=== PATIENT | male | born 1945 | race Caucasian/White ===

== ENCOUNTER → 2016-09-07 | Outpatient (REF) | payer MEDICARE, OTHER ==
[~2016-09-07] MED LIST: ALLO100T PO; AMBI10TA PO; AMOX500T2 PO; CALC1CAP31 PO; CITA20TA4 PO; COLC1CAP PO; CYCL10TA PO; DILA2TAB2 PO; FURO20TA2 PO; FURO40TA2 PO; GABA300C3 PO; INSUH10VL SC; INSULADS SC; METO-207 PO; MULT1TAB9 PO; OMEG100011 PO; PRED20TAB PO; RENATAB5 PO; ULTR100T6 PO; VITA-112 PO; VITATAB11 PO; VITATAB21 PO; [UNRECOGNIZED DRUG - CODE] XX
[2016-09-07 13:31] LABS: PERCENT SATURATION 16.1 % (19.7-37.4)
== END ==
LOC: M LAB REF 12:51
PROVIDERS: ATTEND Internal Medicine Nephrology
DX: N18.9 Chronic kidney disease, unspecified (principal); D63.1 Anemia in chronic kidney disease

== ENCOUNTER 2016-09-16 07:09 | Outpatient (CLI) | payer MEDICARE, OTHER ==
[2016-09-16] MEDS ORDERED: IRON SUCROSE 25 MG in NS 50 ML IV ONE (07:30)
[2016-09-16] MEDS ORDERED: IRON SUCROSE 475 MG in NS 250 ML IV ONE (08:30)
== END 2016-09-16 12:20 | disposition home or self-care (01) ==
LOC: M INFU 07:09
PROVIDERS: ATTEND Internal Medicine Nephrology
DX: D50.9 Iron deficiency anemia, unspecified (principal)
CPT/HCPCS: 96365; 96366; J1756

== ENCOUNTER → 2016-10-08 | Outpatient (REF) | payer MEDICARE, OTHER | LOC: M LAB REF 15:04 | PROVIDERS: ATTEND Podiatrist | DX: L03.032 Cellulitis of left toe (principal) ==

== ENCOUNTER → 2016-11-01 | Outpatient (CLI) | payer MEDICARE, OTHER ==
--- NOTE | 2016-11-01 11:28 | REP ---
Clinical: History of head and neck carcinoma. Comparison: 03/13/2015. Findings: Right perihilar and basilar atelectasis along with mild scattered bilateral bronchiectasis may be minimally progressive from prior examination. The lung [place] are otherwise clear and without obvious consolidation, nodule or mass lesion. No pleural effusion or pneumothorax. Subcentimeter mediastinal and hilar lymph nodes are nonspecific. Mediastinum demonstrates prior sternotomy and CABG without cardiomegaly or pericardial effusion. Atherosclerotic changes to the vasculature noted. Osseous structures demonstrate age-related degenerative changes. Impression: 1. Right perihilar and basilar atelectasis with a mild scattered bronchiectasis likely age related changes. 2. No acute consolidation, nodule or mass lesion. No evidence for adenopathy. Signed by Nadir Bonner MD 11/01/2016 11:19 A
--- NOTE | 2016-11-01 11:35 | REP ---
CT NECK WITHOUT CONTRAST: HISTORY: Neck carcinoma. COMPARISON: 05/24/2016. The patient is status post right parotidectomy and right submandibular sialoadenectomy. The patient is status post resection of the right sternocleidomastoid muscle. Scarring is present in the right parotid bed. The left parotid, submandibular and thyroid glands are normal in appearance. The naso-, modesto-, and hypopharynx, larynx and subglottic trachea are normal in appearance. Small lymph nodes less than 1 cm in size are present in the internal jugular chains, posterior triangles and submandibular areas. Atherosclerotic calcification is present at the carotid bifurcations. Degenerative change is present in the cervical spine. The lung apices are clear. The visualized sinuses are clear. IMPRESSION: There is no recurrent tumor. Signed by Aiden Buchanan MD 11/01/2016 12:00 P
== END ==
LOC: M RAD 10:29
PROVIDERS: ATTEND Radiology Radiation Oncology
DX: J98.11 Atelectasis (principal)

== ENCOUNTER → 2016-12-01 | Outpatient (CLI) | payer MEDICARE, OTHER ==
[~2016-12-01] MED LIST changes: +CELE20TA PO; +FEBU40TA PO; +GABA-282 PO; -GABA300C3 PO; +INSULANT SC; +PLAV75TA38 PO; +PRED10TA PO; +RENV2TAB PO; +TORS20TA2; +TRAM50TA2 PO; +VITMTA PO; +[UNRECOGNIZED DRUG - CODE] TOP; -[UNRECOGNIZED DRUG - CODE] XX
--- NOTE | 2016-12-01 13:42 | REP ---
Left hip two views: Comparison is the left femur study of 05/31/2008. Mineralization and joint space are unremarkable. There is a calcification adjacent to the greater trochanter. This s could be ligamentous calcification could be evidence for trochanteric bursitis. Mineralization is normal. There are vascular atheromatous calcifications. If symptoms persist or worsen, consider MRI. Signed by Mich Valero MD 12/01/2016 01:32 P
== END ==
LOC: M CLY 12:06
PROVIDERS: ATTEND Family Medicine
DX: M25.552 Pain in left hip (principal)
CPT/HCPCS: 73502; G0463

== ENCOUNTER → 2016-12-29 | Outpatient (CLI) | payer MEDICARE, OTHER ==
[2016-12-29 11:37] LABS: CREATININE FOR GFR 4.54 MG/DL (0.70-1.30); GLOMERULAR FILTRATION RATE 13.8 (>49)
== END ==
LOC: M LAB 10:46
PROVIDERS: ATTEND Surgery Vascular Surgery
DX: N18.6 End stage renal disease (principal)

== ENCOUNTER → 2016-12-31 | Outpatient (CLI) | payer MEDICARE, OTHER ==
[~2016-12-31] MED LIST changes: +HEPARIN 1,000 UNITS/ML 10ML VIAL (FOR RADIOLOGY& DIALYSIS ONLY) As Ordered ONE; +ISOVUE-300 61% 50ML VIAL (Q9967) As Ordered ONE; +LIDOCAINE 2% MDV 20 ML VIAL As Ordered ONE; +MIDAZOLAM INJ 2 MG/2 ML VIAL (J2250) As Ordered ONE; +fentaNYL 100 MCG/2 ML INJECTION (J3010) As Ordered ONE
--- NOTE | 2017-01-13 16:55 | REP ---
IR FLUORO GUIDANCE: REASON: Revision of AV fistula. 2.17 minutes of fluoroscopy was utilized for Dr. Torito Zavala to perform his procedure. Multiple spot films were taken during AV fistula revision. There is contrast seen opacifying the fistula. Signed by Isael Owens DO 01/14/2017 11:55 A
--- NOTE | 2017-02-03 09:15 | RO ---
DATE OF PROCEDURE: 12/31/2016 PREPROCEDURE DIAGNOSIS: End stage renal disease, dysfunctional left brachiocephalic arteriovenous fistula. POSTPROCEDURE DIAGNOSIS: End stage renal disease, dysfunctional left brachiocephalic arteriovenous fistula. SURGEON: Dr. Torito Zavala CHECKOUT OPERATOR: None. PROCEDURE: Left brachiocephalic arteriovenous fistulogram, selective left brachial artery catheter placement with angiogram run off. Left brachial artery angioplasty with 5 x 40 Hermitage balloon, left cephalic vein angioplasty with 5 x 40 Hermitage balloon. ANESTHESIA: Local sedation with 1 mg of Versed and 50 mcg of Fentanyl. ESTIMATED BLOOD LOSS: 200 mL. IV FLUID: 100 mL of Crystalloid. SPECIMENS: Culture and sensitivity of the left upper arm wound times two. COMPLICATIONS: None. DRAINS: None. SPECIMENS: None. IMPLANTS: None. SEDATION TIME: 8:35 a.m. with the sedation being administered by myself and the cardiopulmonary monitoring performed by the RN in the room. I was present for and directed the entire case. INDICATION: The patient is a 71-year-old male with end stage renal disease who dialyzes through a Perm-A-Cath but has undergone creation of a left brachiocephalic arteriovenous fistula, which has undergone multiple interventions in an attempt to make the fistula useable without success. The patient will now undergo a left brachiocephalic arteriovenous fistulogram with possible angioplasty and stent. Risks, benefits and alternative treatment options were discussed with the patient. Alternative treatment options included, but were not limited to, no intervention. Risks included, but were not limited to infection, bleeding, loss of arteriovenous access, possible need for open surgical intervention, cerebrovascular accident, myocardial infarction, pulmonary embolus, deep vein thrombosis (DVT), Steal syndrome, loss of limb, loss of life, and poor outcome. The patient understands and accepts these risks and consents to proceed. DESCRIPTION OF PROCEDURE: The patient was taken to the angiography suite and placed on the angiography table and the left upper extremity was prepped and draped in a standard surgical fashion. The arteriovenous fistula was cannulated with a micro puncture needle and after anesthetizing the overlying skin with 1% Lidocaine with the direction of cannulation toward the arteriovenous anastomosis, the wire was advanced through the micro puncture sheath, which had been placed over the micro puncture wire. A [employer] wire and catheter were advanced through the fistula and into the brachial artery in a retrograde fashion and a selective brachial artery angiograph with run off were performed showing an approximate 70% stenosis at the arteriovenous anastomosis. The remainder of the fistula was widely patent with good size and caliber to the cephalic vein in the upper arm on the left. A 5 x 40 Hermitage balloon was used to angioplasty the left brachial artery and the left cephalic vein at the anastomosis. A completion brachial artery angiogram with run off was performed showing resolution of the stenosis. There was a stronger thrill palpable in the fistula at the completion of the intervention and a stronger pulse with compression of the cephalic vein. Catheters and wires were removed. A #2-0 Prolene suture was placed at the puncture site for hemostasis and then removed prior to discharge from the holding area. All instrument, sponge, and needle counts were correct at the end of the case. There were no complications. Dr. Zavala was present for and directed the entire case. The patient was transferred to the holding area and subsequently discharged in stable condition once the #2-0 Prolene suture was removed and no bleeding noted. Radiologic supervision and interpretation: The selective brachial artery angiogram with run off showed stenosis at the arteriovenous anastomosis. There was also a large collateral originating off of the cephalic vein in the translocated portion and feeding into the deeper venous system. The arteriovenous anastomosis was angioplastied with a 5 x 4 Hermitage balloon with a followup brachial artery angiogram showing resolution of the stenosis and good flow into the fistula. CONCLUSION: The patient underwent successful angioplasty of the anastomosis of the arteriovenous fistula with a much stronger thrill palpable in the fistula at the completion of the intervention. The fistula is stable for use for hemodialysis access.
== END ==
LOC: M IRPRO 06:50
PROVIDERS: ATTEND Surgery Vascular Surgery
DX: N18.6 End stage renal disease (principal)
CPT/HCPCS: 36902; 99152; C1725; C1769; C1887; C1894; J2250; J3010; Q9967